=== PATIENT | male | born 1985 | race African-American/Black ===

== ENCOUNTER 2018-11-14 05:25 | Emergency (ER) | payer MEDICAID ==
[~2018-11-14] VITALS: Ht 177.8 cm; Wt 73.0 kg
[2018-11-14] MEDS ORDERED: IBUPROFEN 600MG TABLET PO STA (07:37)
[2018-11-14 08:40] VITALS: BP 137/93
== END 2018-11-14 08:41 | disposition home or self-care (01) ==
LOC: ER 05:25
DX: N48.22 Cellulitis of corpus cavernosum and penis (principal)
CPT/HCPCS: 99283